=== PATIENT | male | born 1980 | race Caucasian/White ===

== ENCOUNTER 2016-12-13 06:36 | Emergency (ER) | payer OTHER | END 2016-12-13 07:20 | disposition left against medical advice (07) | LOC: ER1 06:36 | DX: F10.10 Alcohol abuse, uncomplicated (principal); F19.10 Other psychoactive substance abuse, uncomplicated; Y90.9 Presence of alcohol in blood, level not specified; F17.200 Nicotine dependence, unspecified, uncomplicated | CPT/HCPCS: 93005; 99284 ==

== ENCOUNTER 2016-12-31 16:24 | Emergency (ER) | payer OTHER | END 2016-12-31 17:45 | disposition home or self-care (01) | LOC: ER1 16:24 | DX: R30.0 Dysuria (principal); F17.210 Nicotine dependence, cigarettes, uncomplicated; Z87.442 Personal history of urinary calculi | CPT/HCPCS: 81001; 96374; 99283; J0696 ==